=== PATIENT | male | born 1940 | race Two or more races ===

== ENCOUNTER 2017-07-26 11:24 | Day surgery (SDC) | payer MEDICARE ==
[~2017-07-26] VITALS: Ht 188 cm; Wt 103.7 kg
[~2017-07-26 11:24] MED LIST: ACID1TAB3 PO; ALPH300C PO; AMLO5TAB2 PO; AMOX-291 PO; ASPI-515 PO; ATOR40TA78 PO; CARV-39 PO; CEPH-376 PO; CHOL3000 PO; CLIN300C8 PO; FURO40TA6 PO; HYDR-3240 PO; INSU100C5 SC; INSU100I28 SQ-INSULIN; INSU100V8 SQ; LISI-170 PO; LOSA50TA6 PO; METF500T4 PO; OMEG1CAP39 PO; OMEP-110 PO; PARO20TA4 PO; PREG50CA PO; RAMI5CAP PO; SIMV20TA3 PO; TAMS0.4C2 PO; TEMA30CA PO; VISIPAQUE 270 MG/ML, 150ML BOTTLE ONE
[2017-07-26] MEDS ORDERED: LIDOCAINE 2%, 20ML ONE (12:37)
[2017-07-26 13:06] LABS: BASOPHILS # (AUTO) 0.03 x10^3/uL (0-0.1); BASOPHILS % (AUTO) 1 % (0-1); EOSINOPHILS % (AUTO) 3 % (1-7); LYMPHOCYTES # (AUTO) 2.28 x10^3/uL (1-3.4); LYMPHOCYTES % (AUTO) 34 % (22-44); MD NO; MEAN CORPUSCULAR HEMOGLOBIN 27.4 pg (27.5-34.5); MEAN CORPUSCULAR HGB CONC 32.5 g/dL (33.2-36.2); MEAN CORPUSCULAR VOLUME 84.3 fL (81-97); MEAN PLATELET VOLUME 8.8 fL (7.4-10.4); MONOCYTES # (AUTO) 0.74 x10^3/uL (0.2-0.8); MONOCYTES % (AUTO) 11 % (2-9); NEUTROPHILS # (AUTO) 3.53 x10^3/uL (1.8-6.8); NEUTROPHILS % (AUTO) 52 % (42-75); PLATELET COUNT 190 x10^3/uL (130-400); RED CELL DISTRIBUTION WIDTH 16.5 % (9.4-14.8)
[2017-07-26 13:07] VITALS: BP 126/80
[2017-07-26] MEDS ORDERED: HEPARIN 1,000 UNITS/ML, 10ML ONE (13:12)
[2017-07-26] MEDS ORDERED: FENTANYL PF 100 MCG/2ML ONE ×2 (13:12)
[2017-07-26] MEDS ORDERED: NITROGLYCERIN 5 MG/ML, 10ML ONE (13:12)
[2017-07-26] MEDS ORDERED: NALOXONE 1 MG/ML, 2ML ONE (13:12)
[2017-07-26] MEDS ORDERED: PROTAMINE SULFATE 10 MG/ML, 25ML ONE (13:12)
[2017-07-26] MEDS ORDERED: FLUMAZENIL 0.1 MG/1 ML, 5ML ONE (13:12)
[2017-07-26] MEDS ORDERED: MIDAZOLAM 1 MG/ML, 5ML ONE (13:12)
[2017-07-26 13:17] LABS: ANION GAP 4 mmol/L (5-15); CALCIUM 8.8 mg/dL (8.5-10.1); CHLORIDE 107 mmol/L (98-107); CREATININE 0.98 mg/dL (0.7-1.3)
[2017-07-26] MEDS ORDERED: INSU100C5 SQ-INSULIN (13:23)
[2017-07-26] MEDS ORDERED: melatonin PO (13:23)
[2017-07-26] MEDS ORDERED: GABA300C10 PO (13:23)
[2017-07-26] MEDS ORDERED: LUBI24CA7 PO (13:23)
[2017-07-26] MEDS ORDERED: FINA5TAB4 PO (13:23)
[2017-07-26] MEDS ORDERED: AMLO2.5T PO (13:23)
[2017-07-26] MEDS ORDERED: PREG50CA PO (13:23)
[2017-07-26] MEDS ORDERED: INSU300I SQ (13:23)
[2017-07-26] MEDS ORDERED: TAMS0.4C2 PO (13:23)
[2017-07-26] MEDS ORDERED: METF500T4 PO (13:23)
[2017-07-26] MEDS ORDERED: FURO40TA6 PO (13:23)
[2017-07-26] MEDS ORDERED: DEXTROSE 50%, 50ML SYRINGE ONE (15:33)
== END 2017-07-26 18:35 ==
LOC: RAD 11:24 → OUT 18:35
PROVIDERS: ATTEND Internal Medicine Cardiovascular Disease
DX: I99.8 Other disorder of circulatory system (principal); I25.10 Atherosclerotic heart disease of native coronary artery without angina pectoris; I10 Essential (primary) hypertension; E11.9 Type 2 diabetes mellitus without complications; I47.2 Ventricular tachycardia; Z79.82 Long term (current) use of aspirin
CPT/HCPCS: 36415; 37226; 37228; 75630; 80048; 82962; 85025; 99156; 99157; C1725; C1751; C1769; C1894; J1644; J2250; J3010; J3490; Q9966; 37232; J2720; J2310

== ENCOUNTER → 2018-11-14 | Outpatient (CLI) | payer MEDICARE ==
[~2018-11-14] MED LIST changes: +AMLO-150 PO; +AMLO2.5T5 PO; -AMLO5TAB2 PO; +FINA5TAB4 PO; +GABA300C10 PO; +INSU100C5 SQ-INSULIN; +INSU300I SQ; +LOSA50TA14 PO; -LOSA50TA6 PO; +LUBI24CA7 PO; +METF500T17 PO; -METF500T4 PO; -RAMI5CAP PO; +RAMI5CAP57 PO; -VISIPAQUE 270 MG/ML, 150ML BOTTLE ONE; +melatonin PO
== END | disposition home or self-care (01) ==
LOC: CVU 12:34
PROVIDERS: ATTEND Internal Medicine Cardiovascular Disease
DX: I34.0 Nonrheumatic mitral (valve) insufficiency (principal); I65.23 Occlusion and stenosis of bilateral carotid arteries; I10 Essential (primary) hypertension; E11.9 Type 2 diabetes mellitus without complications; E78.00 Pure hypercholesterolemia, unspecified
CPT/HCPCS: 93306; 93880

== ENCOUNTER → 2019-11-21 | Outpatient (CLI) | payer MEDICARE ==
[~2019-11-21] MED LIST changes: +SIMV20TA19 PO; -SIMV20TA3 PO
== END | disposition home or self-care (01) ==
LOC: CFH 12:41
PROVIDERS: ATTEND Internal Medicine Cardiovascular Disease
DX: I35.8 Other nonrheumatic aortic valve disorders (principal); I25.10 Atherosclerotic heart disease of native coronary artery without angina pectoris
CPT/HCPCS: 93306

== ENCOUNTER 2021-01-09 10:50 | Emergency (ER) | payer MEDICARE ==
[~2021-01-09] VITALS: Ht 188 cm; Wt 99.3 kg
[~2021-01-09 10:50] MED LIST changes: -ASPI-515 PO; +ASPI-963 PO; -CLIN300C8 PO; +CLIN300C9 PO; +HYDR-2214 PO; -HYDR-3240 PO
[2021-01-09 12:25] LABS: BASOPHILS % (AUTO) 1 % (0-1); EOSINOPHILS % (AUTO) 3 % (1-7); LYMPHOCYTES % (AUTO) 20 % (22-44); MEAN CORPUSCULAR HEMOGLOBIN 26.9 pg (27.5-34.5); MEAN CORPUSCULAR HGB CONC 32.5 g/dL (33.2-36.2); MEAN PLATELET VOLUME 8.7 fL (7.4-10.4); MONOCYTES % (AUTO) 8 % (2-9); NEUTROPHILS % (AUTO) 69 % (42-75); PLATELET COUNT 150 x10^3/uL (130-400); RED BLOOD COUNT 4.27 x10^6/uL (4.38-5.82); RED CELL DISTRIBUTION WIDTH 18.2 % (9.4-14.8)
[2021-01-09 12:38] LABS: ALBUMIN 2.8 g/dL (3.4-5.0); ANION GAP 9 mmol/L (5-15); CALCIUM 8.6 mg/dL (8.5-10.1); CHLORIDE 103 mmol/L (98-107)
[2021-01-09 12:43] LABS: ALANINE AMINOTRANSFERASE 19 U/L (12-78); ALKALINE PHOSPHATASE 110 U/L (45-117); BILIRUBIN,TOTAL 0.5 mg/dL (0.2-1.0); CREATININE 1.05 mg/dL (0.7-1.3); TOTAL PROTEIN 6.2 g/dL (6.4-8.2); TROPONIN I < 0.015 ng/mL (0.000-0.045)
[2021-01-09 13:15] LABS: MICROSCOPIC AUTO
[2021-01-09] MEDS ORDERED: SODIUM CHLORIDE 0.9%, 500ML IVBOLUS ONE (13:30)
[2021-01-09 14:08] VITALS: BP 146/69
--- NOTE | 2021-01-09 15:17 | NUR ---
BREAK RN- DC INSTRUCTIONS REVIWED
== END 2021-01-09 15:18 | disposition home or self-care (01) ==
LOC: ED 12:00
DX: R53.1 Weakness (principal); E11.9 Type 2 diabetes mellitus without complications
CPT/HCPCS: 36415; 71045; 80053; 81001; 83880; 84443; 84484; 85025; 93005; 99285; J7040

== ENCOUNTER 2021-01-24 12:07 | Outpatient (CLI) | payer MEDICARE | END 2021-01-24 23:59 | disposition home or self-care (01) | LOC: CVU 12:07 | PROVIDERS: ATTEND Podiatrist | DX: I77.1 Stricture of artery (principal); E11.42 Type 2 diabetes mellitus with diabetic polyneuropathy; I73.9 Peripheral vascular disease, unspecified; Z89.412 Acquired absence of left great toe | CPT/HCPCS: 93925 ==